=== PATIENT | female | born 1990 | race Caucasian/White ===

== ENCOUNTER 2021-09-22 16:22 | Emergency (ER) | payer SELFPAY ==
[2021-09-22 17:51] LABS: Bilirubin Negative (Negative); Blood, Urine Negative (Negative); Clarity Clear (Clear); Glucose, Urine (Dipstick) Negative (Negative); Ketone, Urine Trace mg/dL (Negative); Leukocyte Negative (Negative); Nitrite Negative (Negative); Protein, Urine (Dipstick) Negative (Neg-Trace); Specific Gravity, Urine 1.025 (1.005-1.030); Urobilinogen 0.2 mg/dL (Less than 2); pH, Urine 5.5 (5.0-9.0)
[2021-09-22 17:52] LABS: Pregnancy Test - Urine (BHCG) Negative (Negative); Pregu Control Background? CLEAR/WHITE (CLR/WHITE); Pregu Control Bar Appear? YES (CONTROL BAR); Specific Gravity 1.025 (1.002-1.036)
== END 2021-09-22 18:11 | disposition home or self-care (01) ==
LOC: MADERS 16:22
DX: R55 Syncope and collapse (principal); S60.312A Abrasion of left thumb, initial encounter; R10.2 Pelvic and perineal pain; W26.8XXA Contact with other sharp object(s), not elsewhere classified, initial encounter
CPT/HCPCS: 81003; 81025; 99284